=== PATIENT | male | born 1945 | race Caucasian/White ===

== ENCOUNTER 2018-04-13 15:50 | Inpatient (IN) ==
[2018-04-13 16:06] VITALS: BMI 31.3
--- NOTE | 2018-04-13 16:45 | DI ---
EXAM: Chest one view, frontal view only. HISTORY: Chest pain. COMPARISON: 12/30/2015. FINDINGS: Post CABG changes noted. The heart size is normal. There is no pulmonary vascular conges tion. The lungs are clear save for calcified granulomatous changes. No pleural effusion or pneumoth orax is seen. No acute osseous abnormality is identified. Since the prior study, there has been no significant interval change. IMPRESSION: No acute cardiopulmonary process.
--- NOTE | 2018-04-13 17:13 | ED.PDOC ---
General ED Provider: Dr. STEPHANY PONCE Chief Complaint: Chest Pain Stated Complaint: CHEST PAIN Time Seen by Physician: 16:00 (RN PRESENT AT ALL TIMES ) Mode of Arrival: Walk-In Information Source: Patient, Family Exam Limitations: No limitations Primary Care Provider: GEE ARSHAD Nursing and Triage Documentation Reviewed and Agree: Yes Does patient meet sepsis criteria?: No System Inflammatory Response Syndrome: Not Applicable Sepsis Protocol: For patient's 13 years and over: Temp is 96.8 and below OR 101 and greater Pulse >90 BPM Resp >20/minute Acutely Altered Mental Status Are patient's symptoms suggestive of a new infection, such as: -Pneumonia -Skin, Soft Tissue -Endocarditis -UTI -Bone, Joint Infection -Implantable Device -Acute Abdominal Infection -Wound Infection -Meningitis -Blood Stream Catheter Infection -Unknown Cardiovascular Complaint Exam - Chest Pain Complaint/Exam Onset: Gradual Duration: 2 DAYS Symptoms Are: Still present Timing: Constant (SINCE 10 AM TODAY) Length of Chest Pain Episodes: SEE ABOVE Initial Severity: Mild Current Severity: Mild Location: Reports: Discrete, Midsternal Pain Radiates: Reports: None Character: Reports: Dull Aggravating: Reports: None Alleviating: Reports: Rest, Upright position (TOOK FULL ASPRIN TODAY) Associated Signs and Symptoms: Denies: Diaphoresis, Nausea, Vomiting, Fever, Palpitations, Cough, Hemoptysis, Back pain, Abdominal pain, Dizziness, Short of air, Calf pain, Calf swelling Related History: Reports: Similar episode Related Surgical History: Reports: None History of Healthcare-Acquired Pneumonia: Reports: No AMI/ACS Risk Factors: Reports: Obesity, Hypertension, Dyslipidemia TAD Risk Factors: Reports: Hypertension Pulmonary Embolism Risk Factors: Reports: None Prior Care for this Complaint: No Recent Stress Test: No Recent Echo/LV Function: No JVD Present: No Subcutaneous Emphysema Present: No Diminshed Breath Sounds: No Reproducible Chest Wall Pain: No Bilateral Pulses Present: Yes Unequal Pulses Noted: No If Risk Factors for AMI/ACS Consider: EKG Differential Diagnoses: Stable Angina, Lower Resp. Infection Quality Indicators For Acute CO or Cardiac Chest Pain: EKG in 10min. Review of Systems - Review Of Systems Constitutional: Reports: No symptoms Eyes: Reports: No symptoms Ears, Nose, Mouth, Throat: Reports: No symptoms Respiratory: Reports: No symptoms Cardiac: Reports: Chest pain GI: Reports: No symptoms : Reports: No symptoms Musculoskeletal: Reports: No symptoms Skin: Reports: No symptoms Neurological: Reports: No symptoms Endocrine: Reports: No symptoms Hematologic/Lymphatic: Reports: No symptoms All Other Systems: Reviewed and Negative Past Medical History - Past Medical History Previously Healthy: Yes Endocrine: Reports: None, DM 2, Dyslipidemia Cardiovascular: Reports: Hypertension Respiratory: Reports: None Hematological: Reports: None Gastrointestinal: Reports: None Genitourinary: Reports: None Neuro/Psych: Reports: None Musculoskeletal: Reports: None Cancer: Reports: None - Surgical History General Surgical History: Reports: None - Family History Family History: Reports: None - Social History Smoking Status: Never smoker Hx Substance Use: No Alcohol Screening: None Physical Exam - Physical Exam Appearance: Well-appearing, No pain distress, Well-nourished Eyes: YOLIE, EOMI, Conjunctiva clear ENT: Ears normal, Nose normal, Oropharynx normal Respiratory: Airway patent, Breath sounds clear, Breath sounds equal, Respirations nonlabored Cardiovascular: RRR, Pulses normal, No rub, No murmur GI/: Soft, Nontender, No masses, Bowel sounds normal, No Organomegaly Musculoskeletal: Normal strength, ROM intact, No edema, No calf tenderness Skin: Warm, Dry, Normal color Neurological: Sensation intact, Motor intact, Reflexes intact, Cranial nerves intact, Alert, Oriented Psychiatric: Affect appropriate, Mood appropriate Interpretation - Radiology Interpretation Radiology Interpretation By: Radiologist Radiology Results: No acute changes - Hand Washer Rate: Normal Rhythm: Sinus Ectopy: None - EKG Interpretation Rate: Normal Rhythm: Sinus Ectopy: None [place]: NL ST Segment: Normal Re-Evaluation - Re-Evaluation Time of Re-Evaluation: 17:16 Status: Improved Vital Signs Stable: Yes Pain Level: 0 Appearance: NAD Lungs: Clear Skin: Warm and Dry Neuro: Alert and Oriented X3 CV: RRR Physician Notification - Case Discussed Physician Notified: PMD Time of Notification: 17:16 Admit To: Inpatient Critical Care Note - Critical Care Note Total Time (mins): 0 Course - Course Hematology/Chemistry: 04/13/18 16:22 18 16:22 Orders, Labs, Meds: Lab Review 04/13/18 04/13/1818 16:22 16:22 16:22 WBC 17.02 H RBC 4.80 Hgb 13.4 L Hct 39.4 L MCV 82.1 MCH 27.9 MCHC 34.0 RDW Coeff of Esme 12.8 Plt Count 188 Immature Gran % (Auto) 0.4 Neut % (Auto) 81.9 Lymph % (Auto) 9.7 L Waldo % (Auto) 7.7 Eos % (Auto) 0.1 Baso % (Auto) 0.2 Immature Gran # (Auto) 0.1 Neut # (Auto) 14.0 H Lymph # (Auto) 1.7 Waldo # (Auto) 1.3 Eos # (Auto) 0.0 Baso # (Auto) 0.0 PT 10.4 INR 1.04 APTT 26.6 Sodium 136 Potassium 4.3 Chloride 100 Carbon Dioxide 25 Anion Gap 15.3 BUN 11 Creatinine 0.82 Estimated GFR (MDRD) 92.00 BUN/Creatinine Ratio 13.41 Glucose 140 H Calcium 9.3 Total Bilirubin 0.8 AST 14 L ALT 15 Alkaline Phosphatase 42 L Total Creatine Kinase 44 Troponin I < 0.0100 Total Protein 7.3 Albumin 3.6 Globulin 3.7 Albumin/Globulin Ratio 0.97 Orders Category Date Time Status EKG-(ED ONLY) Stat CARDIO 04/13/18 16:07 Ordered ED IV/MEDIPORT/POWERPORT .ONCE EMERGENCY 04/13/18 16:07 Active CBC W/ AUTO DIFF Stat LAB 04/13/18 16:22 Completed COMPREHENSIVE METABOLIC PANEL Stat LAB 04/13/18 16:22 Completed CREATINE KINASE Stat LAB 04/13/18 16:22 Completed PARTIAL THROMBOPLASTIN TIME Stat LAB 04/13/18 16:22 Completed PT WITH INR Stat LAB 04/13/18 16:22 Completed TROPONIN I Stat LAB 04/13/18 16:22 Completed 0.9 % Sodium Chloride [Saline Flush] MEDS 04/13/18 16:06 Active 1 syr IVF PRN PRN CHEST, 1V AP ONLY Stat RADS 04/13/18 16:07 Completed Medications Generic Name Dose Route Start Last Admin Trade Name Freq PRN Reason Stop Dose Admin Sodium Chloride 1 syr 04/13/18 16:06 Saline Flush IVF PRN PRN To flush IV Vital Signs: Temp Pulse Resp BP Pulse Ox 04/13/18 15:58 97.7 F 67 26 H 136/73 97 NONA Risk Score NONA Risk Score: Risk Score Odds of by 30D 0 0.1 (0.1-0.2) 1 0.3 (0.2-0.3) 2 0.4 (0.3-0.5) 3 0.7 (0.6-0.9) 4 1.2 (1.0-1.5) 5 2.2 (1.9-2.6) 6 3.0 (2.5-3.6) 7 4.8 (3.8-6.1) Departure - Departure Time of Disposition: 17:15 Disposition: ADMITTED INPATIENT Discharge Problem: Chest pain Instructions: Angina (ED) Condition: Good Pt referred to PMD for follow-up: Yes IPMP verified?: No Additional Instructions: Please call your Family Physician as soon as possible to schedule a follow-up appointment. Home Medications: Ambulatory Orders Alprazolam [Xanax] 0.5 mg PO DAILY 04/13/18 Aspirin [Aspirin EC] 325 mg PO DAILY 04/13/18 Finasteride 5 mg PO DAILY 04/13/18 Lovastatin 40 mg PO DAILY 04/13/18 Metformin HCl [Metformin HCl ER] 1,000 mg PO BID 04/13/18 Metoprolol Tartrate [Lopressor] 25 mg PO DAILY 04/13/18 Disposition Discussed With: Patient
[2018-04-13] MEDS ORDERED: ZOFRAN 4 MG/2 ML IVP STA (17:25)
[2018-04-13] MEDS ORDERED: MORPHINE 4 MG/ML SYRINGE IVP STA (17:25)
[2018-04-13] MEDS ORDERED: SODIUM CHLORIDE 1,500 ML IV SCH (17:30)
[2018-04-13] MEDS ORDERED: SODIUM CHLORIDE 1,000 ML IV ONE (17:46)
[2018-04-13] MEDS ORDERED: GI COCKTAIL PO STA (18:16)
[2018-04-13] MEDS: SODIUM CHLORIDE 1,000 ML IV SCH (19:00)
[2018-04-13] MEDS ORDERED: GI COCKTAIL PO ONE (20:01)
[2018-04-13] MEDS ORDERED: XANAX ONE (20:34)
[2018-04-13] MEDS ORDERED: MEVACOR ONE ×2 (20:34→21:00)
[2018-04-13] MEDS ORDERED: NON-FORMULARY MEDICATION (Metformin Hcl [Metformin Hcl Er] 1,000 MG) PO SCH (21:00)
[2018-04-13] MEDS ORDERED: MORPHINE 4 MG/ML VIAL ONE (21:21)
[2018-04-14] MEDS: SODIUM CHLORIDE 1,000 ML IV SCH ×2 (00:51→07:52)
[2018-04-14] MEDS ORDERED: TYLENOL PO PRN (00:52)
[2018-04-14] MEDS ORDERED: TYLENOL ONE (00:56)
[2018-04-14 05:57] VITALS: BP 142/68; TEMP 98.6
[2018-04-14] MEDS ORDERED: ASPIRIN EC PO SCH (08:00)
[2018-04-14] MEDS ORDERED: DILAUDID 2 MG/ML SYRINGE IVP STA (08:17)
[2018-04-14] MEDS ORDERED: ZOFRAN 4 MG/2 ML ONE ×2 (08:33→15:30)
[2018-04-14] MEDS ORDERED: DILAUDID 2 MG/ML SDV ONE ×2 (08:33→15:30)
[2018-04-14] MEDS ORDERED: ZOFRAN 4 MG/2 ML IVP STA ×2 (08:49→15:17)
[2018-04-14] MEDS ORDERED: XANAX PO SCH ×2 (09:00→21:00)
[2018-04-14] MEDS ORDERED: LOPRESSOR PO SCH (09:00)
[2018-04-14] MEDS ORDERED: NON-FORMULARY MEDICATION (Lovastatin [Lovastatin] 40 MG) PO SCH (09:00)
[2018-04-14] MEDS ORDERED: PROSCAR PO SCH (09:00)
[2018-04-14] MEDS ORDERED: MEVACOR PO SCH ×2 (09:00→21:00)
--- NOTE | 2018-04-14 10:17 | CT ---
EXAM: CT of the abdomen pelvis with and without contrast History: Abdominal pain. Comparison: None available. Technique: Multiplanar CT images through the abdomen and pelvis were obtained with and without the a dministration of IV contrast Findings: Heart is mildly enlarged. Subsegmental atelectasis seen within the lower lungs. Trace ri ght pleural effusion. No acute osseous abnormalities. Moderate to severe degenerative disc disease a t L5-S1. Multiple prominent bilateral renal parapelvic cysts. Nonspecific bilateral perinephric str anding. Multiple gallstones. The gallbladder wall is thickened and there is pericholecystic inflamm ation. No focal liver or splenic lesions. No focal abnormality of the pancreas. There are scattered simple bilateral renal cortical cysts measuring up to 3 cm bilaterally. There is a 1.9 cm cystic le mariann involving the medial cortex of the left kidney demonstrates nodular enhancement versus traversin g vessel. This is best seen on postcontrast coronal image number 72. . The appendix is not dilated or inflamed. No bowel obstruction. No free air. Colonic diverticulo sis. No bladder wall thickening. Prostate is enlarged. No perirectal inflammation. No free air. S mall amount of pelvic free fluid. Impression: 1. Acute cholecystitis. 2. Complex 1.9 cm medial left renal cystic lesion versus pseudoenhancement from traversing vessel. Follow-up CT is recommended in 3 months to document stability. 3. Colonic diverticulosis. 4. Small amount of pelvic free fluid. 5. Nonspecific bilateral perinephric stranding.
--- NOTE | 2018-04-14 10:19 | US ---
EXAM: Right upper quadrant abdominal ultrasound. History: Abdominal pain. Comparison: CT abdomen pelvis 03/2018 Technique: Multiple sonographic images through the abdomen were obtained. Color duplex Doppler was used to interrogate vascular flow. Findings: The pancreas was not well visualized due to obscuration by bowel gas. No focal liver lesions identif ied sonographically. There is antegrade flow within the main portal vein. No abdominal ascites. Ch olelithiasis, gallbladder sludge in gallbladder wall thickening. Common bile duct is not well seen b ut may be mildly dilated. 2.5 cm right renal cyst. Impression: 1. Acute cholecystitis. 2. Question mild dilatation of the common bile duct but is not well seen.
[2018-04-14] MEDS ORDERED: ROCEPHIN 1 GM in SODIUM CHLORIDE 50 ML IV STA (12:47)
--- NOTE | 2018-04-14 13:49 | SSS ---
DATE OF SERVICE: 04/14/18 REASON FOR ADMISSION/HISTORY OF PRESENT ILLNESS: 73 year old white male hospitalized on 04/13/18 from the emergency room with chest pain. The patient had chest pain for duration two days. The patient has history of coronary bypass surgery in 1992. It was ruled out to have [place] or ischemia. The patient's cardiac markers were negative and EKG sinus rhythm with no acute changes. The patient was put in the hospital with telemetry and routine telemetry orders to rule out any cardiac event and for him to undergo stress echo and echo. During the night of his stay the patient developed right upper quadrant pain with his existing chest pain. The patient's CT scan of the abdomen and ultrasound of the abdomen was done this morning which showed acute cholecystitis. His WBC from 17,000 on admission dari to 23,000. REVIEW OF SYSTEMS: CONSTITUTIONAL: No night sweats. Fatigue. No fever or chills. HEENT: Eyes: No visual changes. No eye pain. No eye discharge. ENT: No runny nose. No epistaxis. No sinus pain. No sore throat. No odynophagia. No ear pain. No congestion. RESPIRATORY: No cough, no congestion. No hemoptysis. No shortness of breath. CARDIOVASCULAR: No angina symptoms. No CHF symptoms. No atypical chest pain for CAD. No palpitations. No orthopnea. Chest pain center of the chest duration two days. Later on radiated to right upper quadrant. GASTROINTESTINAL: No abdominal pain. Nausea with smell of food. No diarrhea or constipation. No hematemesis. No hematochezia. GENITOURINARY: No dysuria. No hematuria. No obstructive symptoms. No discharge. No pain. No significant abnormal bleeding. MUSCULOSKELETAL: No musculoskeletal pain. No joint swelling. NEUROLOGICAL: Awake, alert, oriented to time, place and person. No headache. No neck pain. No syncope. No seizures. No dizziness. PSYCHIATRIC: Not anxious. No depression. No suicidal thoughts. No homicidal thoughts. SKIN: No rash. No lesions. No wounds. ENDOCRINE: No unexplained weight loss. No weight gain. HEMATOLOGIC/LYMPHATIC: No anemia. No purpura. No petechiae. No prolonged or excessive bleeding. No palpable lymph nodes. PAST HISTORY: Coronary bypass surgery 1992 C of the vocal cords 2012 Diabetes Mellitus with A1c of 6.0 on 05/2017 Dyslipidemia Right sciatica Metabolic syndrome Mild bronchial asthma PERSONAL/FAMILY HISTORY/SOCIAL HISTORY: The patient is and lives with the . Non smoker and no alcohol abuse. Regular on his followups. PHYSICAL EXAMINATION: VITAL SIGNS: Temperature 98.6, pulse 70, respiratory rate 16, blood pressure 142/68 and pulse ox 93% on room air. HEENT: Head normocephalic, atraumatic. Eyes: Extraocular muscles are intact. Pupils are equal, round and reactive to light and accommodation. Ears: No lesions. Nose appeared normal. Throat: No exudate or erythema. NECK: Supple. No JVD, no carotid bruit. No lymphadenopathy or thyromegaly. LUNGS: Decreased breath sounds but clear to auscultation. Percussion note normal. Chest symmetrical. HEART: S1, S2, no S3. No murmurs. No cyanosis or clubbing. No ascites. Pulses: Dorsalis pedis and posterior tibial pulses +1 bilaterally. ABDOMEN: Soft. Bowel sounds active. No CVA tenderness. No mass felt. Tenderness in the right upper quadrant. EXTREMITIES: No edema. Full range of motion of all extremities, equal. NEUROLOGIC: No focal deficit. Cranial nerves II through XII are grossly intact. No headache, no double vision or headache. SKIN: Not dry. Intact. Turgor - normal. LYMPHATIC: No palpable lymph nodes/no lymphedema. MUSCULOSKELETAL: Normal joints with no swelling. Muscle tone is normal. ALLERGIES: None. MEDICATIONS: Xanax 0.5mg PO daily Aspirin 325mg PO daily Finasteride 5mg PO for prostate Lovastatin 40mg PO daily Metformin 1,000mg PO twice a day Metoprolol 25mg PO daily LABS/EKG'S/X-RAY/ECHO/ABG: HGb 14, hct 43, WBC 22,000 shift to the left, Creatinine 0.8, BUN 12, potassium 4, glucose 200. GFR 94cc per minute. INR normal. Echo showed mildly hypokinetic septal wall with normal LV cavity size with LV ejection fraction 50%. LA cavity is enlarged valves are normal with no pericardial effusion or thrombus. EKG showed sinus rhythm with nonspecific ST-T wave change. Cardiovascular status is stable. DIAGNOSES: 1. Chest pain, right upper quadrant pain, acute cholecystitis 2. Coronary bypass surgery 1992 with stable cardiovascular status 3. Dyslipidemia 4. Hypertension 5. Right sciatica 6. Metabolic syndrome 7. Diabetes Mellitus 8. History of mild bronchial asthma. HOSPITAL COURSE: 73 year old white male hospitalized with chest pain which later on radiated to right upper quadrant. The patient on further workup had acute cholecystitis. His serial EKG's did not show any acute changes. Telemetry showed sinus rhythm with no arrhythmias noted. His cardiac markers were negative. He does not have any signs of symptoms of CHF or coronary insufficiency. The patient was given 1 gram of Rocephin, IV fluids 1,000cc D5 half normal saline every 25 cc per hour. The patient had few bites of lunch this morning otherwise he was kept NPO because of his CT scan of the abdomen and pelvis that were done this morning. The patient has not been given Metformin during this hospital stay. The patient was explained about all these findings. [facility] called to transfer the patient. Case discussed with Dr. Cherelle Lam and she was kind enough to accept the patient. The patient is agreeable. CONDITION AT THE TIME OF TRANSFER: Stable. TIME SPENT: More than 70 minutes. [facility]
--- NOTE | 2018-04-14 13:50 | PN ---
04/13/18: Level 5 04/14/18: D as in discharge MTDD
[2018-04-14] MEDS ORDERED: DILAUDID 2 MG/ML SDV IVP STA (15:17)
[2018-04-14] MEDS ORDERED: GLUCOPHAGE PO SCH (21:00)
--- NOTE | 2018-04-18 11:39 | ECHO2D ---
Date of Exam: 04/14/18 Ordering Physician: DR. GEE ARSHAD Room #: [id number] Reason for Echo: CHEST PAIN M-Mode Normal Adult Results LV Dimensions Normal Adult Results AoV Opening excursions >1.6 >1.6 LVEDD-base- 3.5-5.8 5.3 Ao root dimensions 2.0-3.7 3.7 LVESD-base- 3.1-4.6 L. Atrium dimensions 1.9-3.8 3.5 Post. Wall thickness 0.8-1.1 1.2 IV septum (thickness) 0.7-1.2 1.1 Post. Wall excursion 0.72-1.3 NORMAL Septal motion 0.8 Systolic motion R. Ventricular cavity 1.5-2.0 NORMAL LVEF 60% 48% Paradoxical septal wall motion NORMAL 2-D : MILDLY HYPOKINETIC SEPTUM ENLARGED LEFT ATRIAL CAVITY, NORMAL VALVES, NO EFFUSION, NO THROMBUS M-MODE: MV: NORMAL AV: NORMAL TV: NORMAL PV: CHAMBER SIZE: ENLARGED LEFT ATRIAL CAVITY WALL MOTION: MILDLY HYPOKINETIC SEPTUM PERICARDIUM: NORMAL INTERPRETATION: 1. HYPOKINETIC SEPTUM (MILD) --EJECTION FRACTION 48% 2. ENLARGED LEFT ATRIAL CAVITY 3. NORMAL VALVES MTDD
== END 2018-04-14 15:40 | disposition short-term general hospital (02) ==
LOC: ED 15:50 → MEDSURG A 17:41
PROVIDERS: ADMIT Internal Medicine; ATTEND Internal Medicine
DX: I10 Essential (primary) hypertension (principal); E78.5 Hyperlipidemia, unspecified; K81.9 Cholecystitis, unspecified; M54.31 Sciatica, right side; E88.81 Metabolic syndrome and other insulin resistance; E11.9 Type 2 diabetes mellitus without complications
CPT/HCPCS: 36415; 80053; 82550; 82962; 84484; 85025; 85610; 85730; 93005; 93010; 96374; 96375; 99284

== ENCOUNTER 2018-04-14 15:43 | Outpatient (CLI) ==
[2018-04-13 16:06] VITALS: BMI 31.3
== END 2018-04-14 15:44 | disposition home or self-care (01) ==
LOC: AMBL 15:43
PROVIDERS: ATTEND Internal Medicine
DX: R07.9 Chest pain, unspecified (principal); K81.0 Acute cholecystitis